=== PATIENT | female | born 1975 | race Caucasian/White ===

== ENCOUNTER 2017-07-29 15:45 | Emergency (ER) | payer BC, OTHER ==
--- NOTE | 2017-07-29 17:05 | ER Document Report ---
ED General - General Chief Complaint: Asthma Exacerbation Stated Complaint: DIFFICULTY BREATHING, COUGH Time Seen by Provider: 07/29/17 16:51 Notes: 42-year-old female here with 2 days of cough chest tightness wheezing shortness of breath congestion runny nose sore throat. She was sick approximately 2 weeks ago with similar symptoms and had improved after azithromycin. She states that she is immune suppressed and has been taking prednisone since the symptoms return. She has tried using her rescue inhaler for her wheezing shortness of breath and chest tightness. TRAVEL OUTSIDE OF THE [place] IN LAST 30 DAYS: No - Related Data Allergies/Adverse Reactions: pregabalin [From Lyrica] Allergy (Verified 07/29/17 15:46) gabapentin [From Neurontin] Adverse Reaction (Verified 07/29/17 15:46) Home Medications: Current Home Medications Acetaminophen [Tylenol] 325 mg PO PRN PRN 07/29/17 [History] Albuterol Sulfate [Proair HFA] 1 - 2 puff IH Q4 PRN 07/29/17 [History] Cetirizine HCl [Zyrtec] 10 mg PO DAILY 07/29/17 [History] Clonazepam [Klonopin] 1 mg PO DAILY 07/29/17 [History] Ibuprofen 200 mg PO PRN PRN 07/29/17 [History] Levothyroxine Sodium 100 mcg PO DAILY 07/29/17 [History] Montelukast Sodium 10 mg PO DAILY 07/29/17 [History] Multivitamin [Multivitamins] 1 each PO DAILY 07/29/17 [History] Ondansetron HCl [Zofran 4 mg Tablet] 1 - 2 tab PO PRN PRN 07/29/17 [History] Prednisone 10 mg PO PRN PRN 07/29/17 [History] Zolmitriptan [Zomig] 2.5 mg NS PRN PRN 07/29/17 [History] Past Medical History - Social History Smoking Status: Never Smoker Chew tobacco use (# tins/day): No Frequency of alcohol use: None Drug Abuse: None Family History: Reviewed & Not Pertinent Patient has suicidal ideation: No Patient has homicidal ideation: No Pulmonary Medical History: Reports: Hx Asthma Renal/ Medical History: Denies: Hx Peritoneal Dialysis Review of Systems - Review of Systems Notes: See history of present illness for pertinent positive review of systems; otherwise all review of systems have been reviewed and are negative Physical Exam - Vital signs Vitals: Temp Pulse Resp BP Pulse Ox 98.4 F 100 12 126/73 H 97 07/29/17 16:08 07/29/17 16:08 07/29/17 16:08 07/29/17 16:08 07/29/17 16:08 - Notes Notes: PHYSICAL EXAMINATION: GENERAL: Well-appearing and in no acute distress. Patient seen coughing several times HEAD: Atraumatic, normocephalic. EYES: Pupils equal round and reactive to light, extraocular movements intact, sclera anicteric, conjunctiva are normal. ENT: nares patent, oropharynx clear without exudates. Moist mucous membranes. NECK: Normal range of motion, supple without lymphadenopathy LUNGS: CTAB and equal. No wheezes rales or rhonchi. HEART: Regular rate and rhythm without murmurs ABDOMEN: Soft, no tenderness. No guarding, no rebound EXTREMITIES: Normal range of motion, no pitting edema. No cyanosis. NEUROLOGICAL: Cranial nerves grossly intact. Normal sensory/motor exams. PSYCH: Normal mood, normal affect. SKIN: Warm, Dry, normal turgor, no rashes or lesions noted Course - Re-evaluation Re-evalutation: 07/29/17 17:06 MEDICAL DECISION MAKING: Concern for upper respiratory infection, most likely viral Will prescribe doxycycline since patient reports she has immunosuppression We will give her refill also of her pro-air and give prescription codeine guaifenesin Instructed follow-up PCP next day or few Patient understands and agrees to the plan of care - Vital Signs Vital signs: Temp Pulse Resp BP Pulse Ox 98.4 F 100 12 126/73 H 97 07/29/17 16:08 07/29/17 16:08 07/29/17 16:08 07/29/17 16:08 07/29/17 16:08 Discharge - Discharge Clinical Impression: Acute URI Condition: Good Disposition: HOME, SELF-CARE Additional Instructions: Finish the prescribed antibiotics. Use the prescribed cough medicine as needed. You were seen in the emergency department at [facility]. If you were given any sedating medications, be sure not to operate heavy machinery (example - driving) and be sure you are not too sedated to walk appropriately. Please followup with your primary physician in the next few days for further management/evaluation. Please return to the emergency department for worsening of symptoms or any symptom that you deem to be concerning or life-threatening. Thank you for allowing us to be part of your care. Prescriptions: Codeine Phosphate/Guaifenesin [Codeine-Guaifen 10-100 mg/5 ml] 120 ml PO Q8HP PRN #7 liquid PRN Reason: Cough Albuterol Sulfate [Proair Hfa Inhalation Aerosol 8.5 gm Mdi] 1 puff IH Q4 PRN # 1 mdi PRN Reason: Doxycycline Hyclate 100 mg PO BID #14 capsule
[2017-07-29 17:12] VITALS: BP 119/77
== END 2017-07-29 17:12 | disposition home or self-care (01) ==
LOC: ER 15:45
DX: J06.9 Acute upper respiratory infection, unspecified (principal); J45.901 Unspecified asthma with (acute) exacerbation; R06.02 Shortness of breath; R05 Cough; R09.81 Nasal congestion; R09.89 Other specified symptoms and signs involving the circulatory and respiratory systems; J02.9 Acute pharyngitis, unspecified; Z79.899 Other long term (current) drug therapy
CPT/HCPCS: 99283

== ENCOUNTER 2018-01-05 11:39 | Emergency (ER) | payer BC, OTHER ==
[2018-01-05] MEDS ORDERED: MORPHINE SULFATE 10 MG/ML INJ IV ONE (12:02)
[2018-01-05] MEDS ORDERED: PANTOPRAZOLE SODIUM 40 MG VIAL IV ONE (12:03)
[2018-01-05] MEDS ORDERED: ONDANSETRON 4 MG TAB.RAPDIS PO ONE (12:21)
[2018-01-05 12:39] LABS: ABSOLUTE BASOPHILS # (AUTO) 0.1 10^3/uL (0.0-0.2); ABSOLUTE EOSINOPHILS # (AUTO) 0.5 10^3/uL (0.0-0.6); ABSOLUTE LYMPHOCYTES (AUTO) 1.8 10^3/uL (0.5-4.7); ABSOLUTE MONOCYTES (AUTO) 0.5 10^3/uL (0.1-1.4); ABSOLUTE NEUT (AUTO) 9.6 10^3/uL (1.7-8.2); BASOPHILS % (AUTO) 0.6 % (0-2); EOSINOPHILS % (AUTO) 3.6 % (0-6); HEMATOCRIT 45.7 % (36.0-47.0); HEMOGLOBIN 15.3 g/dL (12.0-15.5); LYMPHOCYTES % (AUTO) 14.8 % (13-45); MEAN CORPUSCULAR HEMOGLOBIN 27.8 pg (27.0-33.4); MEAN CORPUSCULAR HGB CONC 33.5 g/dL (32.0-36.0); MEAN CORPUSCULAR VOLUME 83 fl (80-97); MONOCYTES % (AUTO) 3.8 % (3-13); PLATELET COUNT 387 10^3/uL (150-450); RED BLOOD COUNT 5.51 10^6/uL (3.72-5.28); RED CELL DISTRIBUTION WIDTH 13.6 % (11.5-14.0); SEGMENTED NEUTROPHILS % (AUTO) 77.2 % (42-78); TOTAL CELLS COUNTED % (AUTO) 100 %; WHITE BLOOD COUNT 12.4 10^3/uL (4.0-10.5)
[2018-01-05 12:48] LABS: APPEARANCE,URINE CLEAR; BILIRUBIN,URINE NEGATIVE (NEGATIVE); COLOR,URINE STRAW; GLUCOSE, URINE NEGATIVE (NEGATIVE); KETONES,URINE NEGATIVE (NEGATIVE); LEUKOCYTE ESTERASE,URINE NEGATIVE (NEGATIVE); NITRITE,URINE NEGATIVE (NEGATIVE); PROTEIN,URINE NEGATIVE (NEGATIVE); URINE SPECIFIC GRAVITY 1.005; UROBILINOGEN,URINE NEGATIVE mg/dL (<2.0)
[2018-01-05 12:52] LABS: ALANINE AMINOTRANSFERASE 31 U/L (9-52); ALBUMIN 5.1 g/dL (3.5-5.0); ALKALINE PHOSPHATASE 81 U/L (38-126); ANION GAP 13 (5-19); ASPARTATE AMINO TRANSFERASE 17 U/L (14-36); BILIRUBIN,DIRECT 0.3 mg/dL (0.0-0.4); BILIRUBIN,TOTAL 0.8 mg/dL (0.2-1.3); BLOOD UREA NITROGEN 10 mg/dL (7-20); CALCIUM 9.9 mg/dL (8.4-10.2); CARBON DIOXIDE 28 mmol/L (22-30); CHLORIDE 102 mmol/L (98-107); GLUCOSE 102 mg/dL (75-110); LIPASE 110.8 U/L (23-300); POTASSIUM 4.3 mmol/L (3.6-5.0); SODIUM 143.4 mmol/L (137-145); TOTAL PROTEIN 8.5 g/dL (6.3-8.2)
--- NOTE | 2018-01-05 13:13 | ER Document Report ---
ED GI/ - General Chief Complaint: Abdominal Pain Stated Complaint: R SIDE ABDOMINAL PAIN Time Seen by Provider: 01/05/18 11:56 Notes: The patient is a 42-year-old female who presents with 1 day of right upper quadrant abdominal pain, epigastric pain and pain to her back. He had this in the past and had a negative gallbladder ultrasound. She was also having some nausea and vomiting earlier today, but this has improved. She denies hematemesis, fevers, flank pain, hematuria, rash or headache. TRAVEL OUTSIDE OF THE [place] IN LAST 30 DAYS: No - Related Data Allergies/Adverse Reactions: pregabalin [From Lyrica] Allergy (Verified 01/05/18 11:55) gabapentin [From Neurontin] Adverse Reaction (Verified 01/05/18 11:55) Past Medical History - General Information source: Patient - Social History Smoking Status: Never Smoker Frequency of alcohol use: None Drug Abuse: None Family History: Reviewed & Not Pertinent Patient has suicidal ideation: No Patient has homicidal ideation: No Pulmonary Medical History: Reports: Hx Asthma Renal/ Medical History: Denies: Hx Peritoneal Dialysis Review of Systems - Review of Systems Notes: REVIEW OF SYSTEMS: CONSTITUTIONAL: -fevers, -chills EENT: -eye pain, -difficulty swallowing, -nasal congestion CARDIOVASCULAR: -chest pain, -syncope. RESPIRATORY: -cough, -SOB GASTROINTESTINAL: +RUQ abdominal pain, +nausea, +vomiting, -diarrhea GENITOURINARY: -dysuria, -hematuria MUSCULOSKELETAL: -back pain, -neck pain SKIN: -rash or skin lesions. HEMATOLOGIC: -easy bruising or bleeding. LYMPHATIC: -swollen, enlarged glands. NEUROLOGICAL: -altered mental status or loss of consciousness, -headache, - neurologic symptoms PSYCHIATRIC: -anxiety, -depression. ALL OTHER SYSTEMS REVIEWED AND NEGATIVE. Physical Exam - Vital signs Vitals: Temp Pulse Resp BP Pulse Ox 98.3 F 87 18 138/81 H 98 01/05/18 11:45 01/05/18 11:45 01/05/18 11:45 01/05/18 11:45 01/05/18 11:45 - Notes Notes: PHYSICAL EXAMINATION: GENERAL: Tearful, mild distress. HEAD: Atraumatic, normocephalic. EYES: Pupils equal round and reactive to light, extraocular movements intact, sclera anicteric, conjunctiva are normal. ENT: nares patent, oropharynx clear without exudates. Moist mucous membranes. NECK: Normal range of motion, supple without lymphadenopathy LUNGS: Breath sounds clear to auscultation bilaterally and equal. No wheezes rales or rhonchi. HEART: Regular rate and rhythm without murmurs ABDOMEN: Soft, mild RUQ tenderness, normoactive bowel sounds. No guarding, no rebound. No masses appreciated. EXTREMITIES: Normal range of motion, no pitting or edema. No cyanosis. NEUROLOGICAL: Cranial nerves grossly intact. Normal speech, normal gait. Normal sensory and motor exams. PSYCH: Normal mood, normal affect. SKIN: Warm, Dry, normal turgor, no rashes or lesions noted. Course - Re-evaluation Re-evalutation: Patient with right upper quadrant abdominal pain radiating to the back and worsening reflux symptoms. Ultrasound does not show any evidence of cholecystitis and her blood work and urine are unremarkable, other than a slight leukocytosis which may be related to her recent vomiting. She has had this in the past and it resolved spontaneously. After medications, she feels much better. Instructed her to begin Prilosec twice a day for possible gastritis/duodenitis and follow-up with her primary care physician and GI doctor for further evaluation and treatment. Given strict return precautions and she understands. - Vital Signs Vital signs: Temp Pulse Resp BP Pulse Ox 98.3 F 74 16 128/66 H 98 01/05/18 11:45 01/05/18 14:14 01/05/18 14:14 01/05/18 14:14 01/05/18 14:14 - Laboratory Result Diagrams: 01/05/18 12:18 01/05/18 12:18 Laboratory results interpreted by me: 01/05/18 01/05/18 12:18 12:18 WBC 12.4 H RBC 5.51 H Absolute Neutrophils 9.6 H Total Protein 8.5 H Albumin 5.1 H - Diagnostic Test Radiology reviewed: Image reviewed, Reports reviewed Radiology results interpreted by : ALDO US: NAD Discharge - Discharge Clinical Impression: Abdominal pain Qualifiers: Abdominal location: right upper quadrant Qualified Code(s): R10.11 - Right upper quadrant pain Condition: Stable Disposition: HOME, SELF-CARE Additional Instructions: ABDOMINAL PAIN: There are many causes of abdominal pain. Pain can mean a serious problem requiring surgery (such as appendicitis). It can also be an innocent problem that goes away on its own (such as a viral infection). Often, time must pass to determine the cause of pain. The physician does not feel that hospitalization is necessary, at present. Things may change within the next 24 hours. Call the doctor or come back for re- examination if any problems occur, such as: (1) Pain that becomes more severe, steady, or becomes concentrated in one specific area. Also, pain that is more severe with movement or coughing. (2) Vomiting that persists or becomes more frequent. (3) Blood in the vomitus, urine, or bowel movements. Blood in the stool may have a tarry or black appearance. (4) Shaking chills or fever greater than 100 degrees F. (5) The abdomen becomes more distended or swollen. (6) Bowel movements cease. (7) Failure to improve as expected. NORMAL EXAM AND WORKUP: At this time, your examination and workup show no significant abnormality. No significant abnormal physical findings are noted. All laboratory, EKG, and imaging (x-ray, CT scans, ultrasound) studies that were ordered show no significant abnormality. Although your examination and all studies that were ordered showed no significant abnormal finding, there are no examinations and no studies that are 100% accurate. There is always the possibility that some abnormality could exist and not be detected with physical examination or within the limits and capabilities of laboratory and other studies. You should return or follow up as you were instructed on your visit today for further evaluation if your symptoms do not resolve. PAIN MEDICATION INJECTION: You have received an injection of a pain medication. You should experience significant pain relief within 45 minutes. This drug is a narcotic - - it will impair your judgement, slow your reaction time and make you sleepy ( as well as relieve your pain). Narcotics also can cause nausea. You should not drive, work with machinery, or perform any task requiring mental alertness until all effects of the medication are gone -- six to eight hours. Do not take any alcohol, or sedatives, and do not take any other medication without checking with your physician. ANTINAUSEA MEDICATION: You have been given a medication to suppress nausea and vomiting. This type of medication can be given as a shot, pill, or suppository. It will usually last for many hours. Pills and shots usually last six to eight hours, suppositories last about 12 hours. For the typical illness, only one or two doses of the medication may be necessary. Mild lightheadedness may occur. This type of medicine can cause drowsiness. Do not drive or operate dangerous machinery while under its influence. Do not mix with alcohol. See your doctor at once if you have muscle spasms or tightness, or uncontrollable motions (particularly of the neck, mouth, or jaw). Persistent vomiting or severe lightheadedness should also be evaluated by the physician. FOLLOW-UP CARE: If you have been referred to a physician for follow-up care, call the physician s office for an appointment as you were instructed or within the next two days. If you experience worsening or a significant change in your symptoms, notify the physician immediately or return to the Emergency Department at any time for re-evaluation. Prescriptions: Omeprazole Magnesium [Prilosec Otc] 20 mg PO Q12H #14 tablet.dr Forms: Elevated Blood Pressure Referrals: GARCÍA ROBERSON DO [NO LOCAL MD] - Follow up as needed DANNA NAJERA MD [ACTIVE STAFF] - Follow up as needed
--- NOTE | 2018-01-05 13:40 | RADIOLOGY REPORT (SQ) ---
EXAM DESCRIPTION: U/S ABDOMEN LIMITED W/O DOP COMPLETED DATE/TIME: 01/05/2018 1:23 pm REASON FOR STUDY: RUQ tenderness COMPARISON: Abdominal ultrasound 02/20/2013 TECHNIQUE: Dynamic and static grayscale images acquired of the abdomen and recorded on PACS. Additio nal selected color Doppler and spectral images recorded. LIMITATIONS: Midline bowel gas FINDINGS: PANCREAS: Not visualized LIVER: No masses. Echotexture normal. LIVER VASCULATURE: Normal directional flow of the main portal vein and hepatic veins. GALLBLADDER: No stones. Minimal sludge in the dependent portion of the gallbladder. Normal wall thi ckness. No pericholecystic fluid. ULTRASOUND-DETECTED JIMENEZ'S SIGN: Negative. INTRAHEPATIC DUCTS AND COMMON DUCT: CBD and intrahepatic ducts normal caliber. No filling defects. D istal common duct not well seen due to duodenum gas. INFERIOR VENA CAVA: Normal flow. AORTA: No aneurysm. RIGHT KIDNEY: Normal size. Normal echogenicity. No solid or suspicious masses. No hydronephrosis. No calcifications. PERITONEAL AND RIGHT PLEURAL SPACE: No ascites or effusions. OTHER: No other significant findings. IMPRESSION: No gallstones, gallbladder wall thickening or pericholecystic fluid. Negative sonograph ic Jimenez's sign TECHNICAL DOCUMENTATION: JOB ID: [id number] [employer]- All Rights Reserved Reading location - IP/workstation name: [email or web address]
[2018-01-05 14:16] VITALS: BP 128/66
== END 2018-01-05 14:28 | disposition home or self-care (01) ==
LOC: ER 11:39
DX: R10.11 Right upper quadrant pain (principal); R10.13 Epigastric pain
CPT/HCPCS: 99284; 96374; 96375; 36415; 83690; 85025; 81025; 80053; 81001; 76705; S0119; J2270; S0164

== ENCOUNTER → 2019-11-08 | Outpatient (CLI) | payer OTHER ==
--- NOTE | 2019-11-08 13:56 | RADIOLOGY REPORT (SQ) ---
EXAM DESCRIPTION: MRI HEAD COMBO IMAGES COMPLETED DATE/TIME: 11/08/2019 1:42 pm REASON FOR STUDY: MS (G35) G35 MULTIPLE SCLEROSIS COMPARISON: 2008 TECHNIQUE: Multiplanar imaging includes noncontrasted T1, T2, FLAIR, diffusion with ADC map and post gadolinium contrast T1 sequences. Images stored on PACS. CONTRAST TYPE AND DOSE: 20 mL Dotarem. RENAL FUNCTION: Not indicated. ACR Type II contrast agent associated with few, if any, unconfounded cases of NSF LIMITATIONS: None. FINDINGS: ANATOMY: No anomalies. Normal vascular flow voids. Pituitary fossa normal. CSF SPACES: Normal in size and contour. No hemorrhage. CEREBRUM: Sulci and gyri normal in size and contour. Normal white matter signal on FLAIR imaging. No evidence of hemorrhage, mass, or extraaxial fluid collection. No abnormal enhancement post contrast. POSTERIOR FOSSA: No signal alteration. No hemorrhage. No edema, masses, or mass effect. Internal renaldo tory canals, cerebellopontine angles, mastoids normal. No enhancing lesions. No abnormal enhancement post contrast. DIFFUSION IMAGING: Negative for acute or subacute infarction. ORBITS: No masses. Globes normal. PARANASAL SINUSES: Fluid left maxillary sinus. OTHER: No other significant finding. IMPRESSION: Normal brain. EVIDENCE OF ACUTE STROKE: NO. TECHNICAL DOCUMENTATION: JOB ID: [id number] 2010 [employer]- All Rights Reserved Reading location - IP/workstation name: [email or web address]
== END ==
LOC: RAD 12:19
PROVIDERS: ATTEND Internal Medicine
DX: G35 Multiple sclerosis (principal)
CPT/HCPCS: 82565; 70553; A9576

== ENCOUNTER 2019-12-26 12:59 | Emergency (ER) | payer OTHER ==
--- NOTE | 2019-12-26 14:01 | ER Document Report ---
ED Medical Screen (RME) - General Chief Complaint: Chest Pain Stated Complaint: CHEST PAIN Time Seen by Provider: 12/26/19 14:00 Primary Care Provider: ELEAZAR ZAYAS MD [Primary Care Provider] - Follow up as needed Mode of Arrival: Ambulatory Information source: Patient Notes: 44-year-old female presents to ED for complaint of chest pain in the center of her chest is pressure and feeling she cannot breathe lightheaded. She states she has a past history of GERD and reflux but sometimes the pain is so bad in her chest that she thinks she is having a heart attack. She is alert oriented respirations regular and unlabored speaking in full sentences. She does have a history of reflux asthma Joey's lupus and high blood pressure. She states she does not smoke drink or use any drugs. I have greeted and performed a rapid initial assessment of this patient. A comprehensive ED assessment and evaluation of the patient, analysis of test results and completion of medical decision making process will be conducted by an additional ED providers. TRAVEL OUTSIDE OF THE [place] IN LAST 30 DAYS: No - Related Data Allergies/Adverse Reactions: pregabalin [From Lyrica] Allergy (Verified 01/05/18 11:55) gabapentin [From Neurontin] Adverse Reaction (Verified 01/05/18 11:55) Past Medical History Pulmonary Medical History: Reports: Hx Asthma Renal/ Medical History: Denies: Hx Peritoneal Dialysis Physical Exam - Vital signs Vitals: Temp Pulse Resp BP Pulse Ox 98.3 F 71 16 135/81 H 99 12/26/19 13:13 12/26/19 13:13 12/26/19 13:13 12/26/19 13:13 12/26/19 13:13 Course - Vital Signs Vital signs: Temp Pulse Resp BP Pulse Ox 98.3 F 71 16 135/81 H 99 12/26/19 13:13 12/26/19 13:13 12/26/19 13:13 12/26/19 13:13 12/26/19 13:13 Doctor's Discharge - Discharge Referrals: ELEAZAR ZAYAS MD [Primary Care Provider] - Follow up as needed
[2019-12-26] MEDS ORDERED: ASPIRIN 81 MG TABLET, CHEWABLE PO ONE (14:02)
[2019-12-26 14:31] LABS: ABSOLUTE BASOPHILS # (AUTO) 0.1 10^3/uL (0.0-0.2); ABSOLUTE EOSINOPHILS # (AUTO) 0.3 10^3/uL (0.0-0.6); ABSOLUTE LYMPHOCYTES (AUTO) 1.3 10^3/uL (0.5-4.7); ABSOLUTE MONOCYTES (AUTO) 0.6 10^3/uL (0.1-1.4); ABSOLUTE NEUT (AUTO) 11.6 10^3/uL (1.7-8.2); BASOPHILS % (AUTO) 0.5 % (0-2); EOSINOPHILS % (AUTO) 2.2 % (0-6); HEMATOCRIT 40.3 % (36.0-47.0); HEMOGLOBIN 13.6 g/dL (12.0-15.5); LYMPHOCYTES % (AUTO) 9.4 % (13-45); MEAN CORPUSCULAR HEMOGLOBIN 26.9 pg (27.0-33.4); MEAN CORPUSCULAR HGB CONC 33.8 g/dL (32.0-36.0); MEAN CORPUSCULAR VOLUME 80 fl (80-97); MONOCYTES % (AUTO) 4.1 % (3-13); PLATELET COUNT 357 10^3/uL (150-450); RED BLOOD COUNT 5.07 10^6/uL (3.72-5.28); RED CELL DISTRIBUTION WIDTH 17.1 % (11.5-14.0); SEGMENTED NEUTROPHILS % (AUTO) 83.8 % (42-78); TOTAL CELLS COUNTED % (AUTO) 100 %; WHITE BLOOD COUNT 13.8 10^3/uL (4.0-10.5)
--- NOTE | 2019-12-26 14:32 | RADIOLOGY REPORT (SQ) ---
EXAM DESCRIPTION: CHEST 2 VIEWS IMAGES COMPLETED DATE/TIME: 12/26/2019 2:22 pm REASON FOR STUDY: chest pain COMPARISON: AP view of the chest from 03/10/2009. EXAM PARAMETERS: NUMBER OF VIEWS: Two views. TECHNIQUE: PA and lateral views of the chest were obtained. RADIATION DOSE: NA LIMITATIONS: None. FINDINGS: LUNGS AND PLEURA: No consolidation, pleural effusion or pneumothorax. MEDIASTINUM AND HILAR STRUCTURES: No mediastinal or hilar contour abnormality. HEART AND VASCULAR STRUCTURES: The cardiac silhouette and pulmonary vasculature are within normal [place] its. BONES: No acute findings. HARDWARE: None in the chest. OTHER: No other finding. IMPRESSION: No acute cardiopulmonary process. TECHNICAL DOCUMENTATION: JOB ID: [id number] 2010 [employer]- All Rights Reserved Reading location - IP/workstation name: [email or web address]
[2019-12-26 14:49] LABS: ALKALINE PHOSPHATASE 68 U/L (38-126); ANION GAP 9 (5-19); ASPARTATE AMINO TRANSFERASE 22 U/L (14-36); BILIRUBIN,TOTAL 0.8 mg/dL (0.2-1.3); BLOOD UREA NITROGEN 13 mg/dL (7-20); CALCIUM 9.9 mg/dL (8.4-10.2); CARBON DIOXIDE 30 mmol/L (22-30); CHLORIDE 101 mmol/L (98-107); GLUCOSE 104 mg/dL (75-110); POTASSIUM 4.1 mmol/L (3.6-5.0); TOTAL PROTEIN 8.2 g/dL (6.3-8.2)
[2019-12-26 15:04] LABS: FREE T3 3.46 pg/mL (2.77-5.27); FREE T4 (FREE THYROXINE) 1.34 ng/dL (0.78-2.19)
[2019-12-26 15:18] LABS: THYROID STIMULATING HORMONE 2.16 uIU/mL (0.47-4.68)
[2019-12-26 15:23] LABS: APPEARANCE,URINE CLEAR; BILIRUBIN,URINE NEGATIVE (NEGATIVE); COLOR,URINE STRAW; GLUCOSE, URINE NEGATIVE (NEGATIVE); KETONES,URINE NEGATIVE (NEGATIVE); LEUKOCYTE ESTERASE,URINE NEGATIVE (NEGATIVE); NITRITE,URINE NEGATIVE (NEGATIVE); PROTEIN,URINE NEGATIVE (NEGATIVE); URINE SPECIFIC GRAVITY 1.004; UROBILINOGEN,URINE NEGATIVE mg/dL (<2.0)
--- NOTE | 2019-12-26 16:49 | ER Document Report ---
ED General - General Chief Complaint: Chest Pain Stated Complaint: CHEST PAIN Time Seen by Provider: 12/26/19 14:00 Primary Care Provider: ELEAZAR ZAYAS MD [Primary Care Provider] - Follow up as needed Mode of Arrival: Ambulatory TRAVEL OUTSIDE OF THE [place] IN LAST 30 DAYS: No - HPI Similar symptoms previously: Yes - patient has had chronic GI issues for some time bu Recently seen / treated by doctor: No Notes: 44 year old female with a history of Lupus, HTN, GERD, Asthma, Thyroid Problems here in the ER for epigastric and RUQ abdominal pain since yesterday. The patient says she has chronic GI issues and she has had an endoscopy in the past and has been told she has "hernia" and GERD. The patient says she had some much pain/pressure in her upper abdomen today that the pain seemed to radiate into her chest and she felt like she was having a heart attack. The patient denies vomiting, sweating, shortness of breath but she has had some nausea. The patient says she was seen here in the ER about a year ago and she had an ultrasound of her gallbladder then showing some sludge but no stones. - Related Data Allergies/Adverse Reactions: vilazodone [From Viibryd] Allergy (Verified 12/26/19 14:01) Past Medical History - General Information source: Patient - Social History Smoking Status: Never Smoker Frequency of alcohol use: None Drug Abuse: None Lives with: Family Family History: Reviewed & Not Pertinent Patient has homicidal ideation: No Pulmonary Medical History: Reports: Hx Asthma Renal/ Medical History: Denies: Hx Peritoneal Dialysis Review of Systems - Review of Systems Constitutional: No symptoms reported EENT: No symptoms reported Cardiovascular: Chest pain Respiratory: No symptoms reported Gastrointestinal: Abdominal pain, Nausea, Vomiting Genitourinary: No symptoms reported Female Genitourinary: No symptoms reported Musculoskeletal: No symptoms reported Skin: No symptoms reported Hematologic/Lymphatic: No symptoms reported Neurological/Psychological: No symptoms reported -: Yes All other systems reviewed and negative Physical Exam - Vital signs Vitals: Temp 98.3 F 12/26/19 12:59 - Notes Notes: GENERAL: Well-appearing, well-nourished and in no acute distress. HEAD: Atraumatic, normocephalic. EYES: Pupils equal round and reactive to light, extraocular movements intact, sclera anicteric, conjunctiva are normal. ENT: External ears normal, nares patent, oropharynx clear without exudates. Moist mucous membranes. NECK: Normal range of motion, supple without lymphadenopathy or JVD. LUNGS: Breath sounds clear to auscultation bilaterally and equal. No wheezes rales or rhonchi. HEART: Regular rate and rhythm without murmurs, rubs or gallops. ABDOMEN: Soft, mild tenderness in RUQ and epigastric area, normoactive bowel sounds. No guarding, no rebound. No masses appreciated. EXTREMITIES: Normal range of motion, no pitting or edema. No clubbing or cyanosis. NEUROLOGICAL: Cranial nerves II through XII grossly intact. Normal speech, normal gait. PSYCH: Normal mood, normal affect. SKIN: Warm, Dry, normal turgor, no rashes or lesions noted. Course - Re-evaluation Re-evalutation: 12/26/19 20:52 The patient is here for epigastric and RUQ abdominal pain. She has had pains like this before but they seem to be getting worse. The patient says the pains radiated to her chest today so she came to the ER to ensure she was not having a heart attack. Patient is low risk for ACS/CAD. Patient's blood work, abdominal US, UA all unremarkable. Patient told to follow up with her PCP and to consider follow up with a GI Doctor. - Vital Signs Vital signs: Temp Pulse Resp BP Pulse Ox 98 F 66 16 127/68 H 99 12/26/19 18:49 12/26/19 18:49 12/26/19 18:49 12/26/19 18:49 12/26/19 18:49 - Laboratory Result Diagrams: 12/26/19 14:13 12/26/19 14:13 Laboratory results interpreted by me: 12/26/19 12/26/19 14:00 14:13 WBC 13.8 H MCH 26.9 L RDW 17.1 H Lymph % (Auto) 9.4 L Absolute Neuts (auto) 11.6 H Seg Neutrophils % 83.8 H Urine Blood MODERATE H Urine Ascorbic Acid 20 H - Diagnostic Test Radiology reviewed: Image reviewed, Reports reviewed - EKG Interpretation by Ct EKG shows normal: Sinus rhythm, [place], Intervals, QRS Complexes, ST-T Waves Rate: Normal Rhythm: NSR Discharge - Discharge Clinical Impression: Abdominal pain Qualifiers: Abdominal location: upper abdomen, unspecified Qualified Code(s): R10.10 - Upper abdominal pain, unspecified Chest pain Qualifiers: Chest pain type: unspecified Qualified Code(s): R07.9 - Chest pain, unspecified Disposition: HOME, SELF-CARE Instructions: Abdominal Pain ([facility]), Chest Pain of Unclear Cause ([facility]) Additional Instructions: Follow up with your primary care doctor and also with a GI Doctor and tell them about your ER visit today. You had blood work done in the ER showing normal function of your liver, gallbladder, pancreas, kidneys. You had an Ultrasound of your upper abdomen showing no acute process and specifically no gallstones. You had an EKG and blood work specific to your heart which were within normal limits. Referrals: ELEAZAR ZAYAS MD [Primary Care Provider] - Follow up as needed
--- NOTE | 2019-12-26 18:16 | RADIOLOGY REPORT (SQ) ---
EXAM DESCRIPTION: U/S ABDOMEN COMPLETE W/O DOP IMAGES COMPLETED DATE/TIME: 12/26/2019 5:19 pm REASON FOR STUDY: eval for cause of abdominal pain COMPARISON: 01/05/2018 TECHNIQUE: Dynamic and static grayscale images acquired of the abdomen and recorded on PACS. Additio samia selected color Doppler and spectral images recorded. Note: Study does not meet criteria for complete doppler/duplex scan LIMITATIONS: None. FINDINGS: PANCREAS: No masses. Limited visibility. LIVER: Normal size. Increased echogenicity. LIVER VASCULATURE: Normal directional flow of the main portal vein and hepatic veins. GALLBLADDER: No stones. Normal wall thickness. No pericholecystic fluid. ULTRASOUND-DETECTED GORDON'S SIGN: Negative. INTRAHEPATIC DUCTS AND COMMON DUCT: Common bile duct is prominent at 7.2 mm. There is no intrahepati c ductal dilatation. INFERIOR VENA CAVA: Normal flow. AORTA: No aneurysm. RIGHT KIDNEY: Normal size, 10.2 cm. Normal echogenicity. No solid or suspicious masses. No hyd ronephrosis. No calcifications. LEFT KIDNEY: Normal size, 12.4 cm. Normal echogenicity. No solid or suspicious masses. No hydr onephrosis. No calcifications. SPLEEN: Normal size. No solid masses. PERITONEAL AND PLEURAL SPACES: No ascites or effusions. OTHER: No other significant finding. IMPRESSION: The common bile duct is borderline at 7 mm. There is no intrahepatic ductal dilatation. There is hepatic steatosis. No other significant finding. TECHNICAL DOCUMENTATION: JOB ID: [id number] 2010 [employer]- All Rights Reserved Reading location - IP/workstation name: [email or web address]
[2019-12-26 18:50] VITALS: BP 127/68
--- NOTE | 2019-12-27 08:06 | EKG REPORT ---
SEVERITY:- NORMAL ECG - SINUS RHYTHM : Confirmed by: Alma Mcclellan MD 27-Dec-2019 08:05:50
== END 2019-12-26 19:07 | disposition home or self-care (01) ==
LOC: ER 12:59
DX: R10.10 Upper abdominal pain, unspecified (principal); R07.9 Chest pain, unspecified; R10.11 Right upper quadrant pain; R10.13 Epigastric pain; R11.0 Nausea; I10 Essential (primary) hypertension; K21.9 Gastro-esophageal reflux disease without esophagitis; J45.909 Unspecified asthma, uncomplicated; Z88.8 Allergy status to other drugs, medicaments and biological substances
CPT/HCPCS: 36415; 71046; 76700; 80053; 81001; 83690; 83735; 84439; 84443; 84481; 84484; 85025; 93005; 93010; 99285

== ENCOUNTER 2020-01-28 13:30 | Emergency (ER) | payer OTHER ==
[2020-01-28] MEDS ORDERED: METOCLOPRAMIDE HCL ORAL SOLN 10 MG/10 ML UDCUP PO ONE (14:01)
[2020-01-28] MEDS ORDERED: MAG HYDROX/AL HYDROX/SIMETH SUSP 30 ML UDCUP PO ONE (14:01)
[2020-01-28] MEDS ORDERED: LIDOCAINE 2% VISCOUS SOLN 15 ML UDCUP PO ONE (14:01)
--- NOTE | 2020-01-28 14:03 | ER Document Report ---
ED Medical Screen (RME) - General Stated Complaint: EPIGASTRIC PAIN Time Seen by Provider: 01/28/20 13:56 Primary Care Provider: ELEAZAR ZAYAS MD [Primary Care Provider] - Follow up as needed Notes: HPI: 44-year-old female presenting to the emergency department complaining of a spasming sensation in the back of the throat leading to some shortness of breath and chest discomfort. Reports epigastric right upper quadrant pain. This is been an ongoing issue with the abdominal pain for several months. States that she has had endoscopy in the past with a head correction officer in [place] that she is been unable to get into and they told her she had a hernia and reflux. She states she is on Protonix currently. Was on Zantac previously which she felt helped but when it got recalled she had to stop this medication. Did not call her primary care provider about evaluation prior to coming to the emergency department today. PHYSICAL EXAMINATION: There is mild tenderness to the epigastric right upper quadrant region on palpation. Patient is not dyspneic with speaking. Lung sounds are clear to auscultation with regular rate and rhythm. On review of the records she did have an ultrasound December 26, 2019 which did not definitively show stones but did show mild borderline dilatation of the common bile duct. I have greeted and performed a rapid initial assessment of this patient. A comprehensive ED assessment and evaluation of the patient, analysis of test results and completion of medical decision making process will be conducted by an additional ED providers. TRAVEL OUTSIDE OF THE [place] IN LAST 30 DAYS: No - Related Data Allergies/Adverse Reactions: vilazodone [From Viibryd] Allergy (Verified 12/26/19 14:01) Past Medical History Pulmonary Medical History: Reports: Hx Asthma Renal/ Medical History: Denies: Hx Peritoneal Dialysis Doctor's Discharge - Discharge Referrals: ELEAZAR ZAYAS MD [Primary Care Provider] - Follow up as needed
[2020-01-28 14:52] LABS: ABSOLUTE BASOPHILS # (AUTO) 0.1 10^3/uL (0.0-0.2); ABSOLUTE EOSINOPHILS # (AUTO) 0.4 10^3/uL (0.0-0.6); ABSOLUTE LYMPHOCYTES (AUTO) 1.5 10^3/uL (0.5-4.7); ABSOLUTE MONOCYTES (AUTO) 0.5 10^3/uL (0.1-1.4); EOSINOPHILS % (AUTO) 3.6 % (0-6); HEMATOCRIT 41.6 % (36.0-47.0); HEMOGLOBIN 13.9 g/dL (12.0-15.5); MEAN CORPUSCULAR HEMOGLOBIN 26.8 pg (27.0-33.4); MEAN CORPUSCULAR HGB CONC 33.4 g/dL (32.0-36.0); MEAN CORPUSCULAR VOLUME 80 fl (80-97); MONOCYTES % (AUTO) 5.1 % (3-13); PLATELET COUNT 374 10^3/uL (150-450); RED BLOOD COUNT 5.18 10^6/uL (3.72-5.28); RED CELL DISTRIBUTION WIDTH 15.4 % (11.5-14.0); SEGMENTED NEUTROPHILS % (AUTO) 76.3 % (42-78); TOTAL CELLS COUNTED % (AUTO) 100 %; WHITE BLOOD COUNT 10.5 10^3/uL (4.0-10.5)
[2020-01-28 14:53] LABS: APPEARANCE,URINE CLEAR; BILIRUBIN,URINE NEGATIVE (NEGATIVE); COLOR,URINE COLORLESS; GLUCOSE, URINE NEGATIVE (NEGATIVE); KETONES,URINE NEGATIVE (NEGATIVE); LEUKOCYTE ESTERASE,URINE NEGATIVE (NEGATIVE); NITRITE,URINE NEGATIVE (NEGATIVE); PROTEIN,URINE NEGATIVE (NEGATIVE); URINE SPECIFIC GRAVITY 1.002; UROBILINOGEN,URINE NEGATIVE mg/dL (<2.0)
[2020-01-28 15:07] LABS: ALKALINE PHOSPHATASE 75 U/L (38-126); ANION GAP 9 (5-19); ASPARTATE AMINO TRANSFERASE 22 U/L (14-36); BILIRUBIN,TOTAL 0.4 mg/dL (0.2-1.3); BLOOD UREA NITROGEN 10 mg/dL (7-20); CALCIUM 9.6 mg/dL (8.4-10.2); CARBON DIOXIDE 29 mmol/L (22-30); CHLORIDE 102 mmol/L (98-107); GLUCOSE 106 mg/dL (75-110); POTASSIUM 4.1 mmol/L (3.6-5.0); TOTAL PROTEIN 8.1 g/dL (6.3-8.2)
[2020-01-28 16:24] VITALS: BP 125/80
--- NOTE | 2020-01-28 16:32 | ER Document Report ---
HPI - HPI Time Seen by Provider: 01/28/20 13:56 Pain Level: 4 Notes: CHIEF COMPLAINT:throat spasm, chest pain HPI:44-year-old female presenting to the emergency department complaining of a spasming sensation in the back of the throat leading to some shortness of breath and chest discomfort. Reports epigastric right upper quadrant pain. This is been an ongoing issue with the abdominal pain for several months. States that she has had endoscopy in the past with a hurl shaker in [place] that she is been unable to get into and they told her she had a hernia and reflux. She states she is on Protonix currently. Was on Zantac previously which she felt helped but when it got recalled she had to stop this medication. Did not call her primary care provider about evaluation prior to coming to the emergency department today. ROS: See HPI - all other systems were reviewed and are otherwise negative Constitutional: no fever Eyes: no drainage, no blurred vision ENT: no runny nose, no sore throat Cardiovascular: no chest pain Resp: no SOB, no cough GI: no vomiting, no diarrhea, no abdominal pain : no dysuria Integumentary: no rash Allergy: no hives Musculoskeletal: no extremity pain or swelling Neurological: no numbness/tingling, no weakness MEDICATIONS: I agree with the patient medications as charted by the RN. ALLERGIES: I agree with the allergies as charted by the RN. PAST MEDICAL HISTORY/PAST SURGICAL HISTORY: Reviewed and agree as charted by RN. SOCIAL HISTORY: Reviewed and agree as charted by RN. FAMILY HISTORY: No significant familial comorbid conditions directly related to patient complaint EXAM: Reviewed vital signs as charted by RN. CONSTITUTIONAL: Alert and oriented and responds appropriately to questions. Well-appearing; well-nourished HEAD: Normocephalic; atraumatic EYES: PERRL; Conjunctivae clear, sclerae non-icteric ENT: normal nose; no rhinorrhea; moist mucous membranes; pharynx without lesions noted, no uvula edema or deviation, no tonsillar hypertrophy, phonation normal NECK: Supple without meningismus; non-tender; no cervical lymphadenopathy, no masses CARD: RRR; no murmurs, no clicks, no rubs, no gallops; symmetric distal pulses RESP: Normal chest excursion without splinting or tachypnea; breath sounds clear and equal bilaterally; no wheezes, no rhonchi, no rales, pulse oximetry 100% on room air not hypoxic. Patient is not dyspneic with speaking. ABD/GI: Normal bowel sounds; non-distended; soft, There is mild tenderness to the epigastric right upper quadrant region on palpation. BACK: The back appears normal and is non-tender to palpation, there is no CVA tenderness EXT: Normal ROM in all joints; non-tender to palpation; no cyanosis, no effusions, no edema SKIN: Normal color for age and race; warm; dry; good turgor; no acute lesions noted NEURO: Moves all extremities equally; Motor and sensory function intact PSYCH: The patient's mood and manner are appropriate. Grooming and personal hygiene are appropriate. MDM:On review of the records she did have an ultrasound December 26, 2019 which did not definitively show stones but did show mild borderline dilatation of the common bile duct. - REPRODUCTIVE Reproductive: DENIES: : Past Medical History - Social History Smoking Status: Never Smoker Frequency of alcohol use: None Drug Abuse: None Family History: Reviewed & Not Pertinent Pulmonary Medical History: Reports: Hx Asthma Renal/ Medical History: Denies: Hx Peritoneal Dialysis Vertical Provider Document - INFECTION CONTROL TRAVEL OUTSIDE OF THE [place] IN LAST 30 DAYS: No Course - Re-evaluation Re-evalutation: 01/28/20 16:34 Patient's lab work does not show any acute abnormalities. She is likely having esophageal spasm. I spoke with the patient at length about this. She states that she had been on Reglan for a long time and this did seem to help with her symptoms but stopped using the Reglan when she was diagnosed with lupus because they were not sure if the tics that were associated with the lupus came from the Reglan although she states even though she stopped the Reglan she still has the tics. She has Reglan at home will take 5 mg twice daily follow-up with her hurl shaker. Her cardiac labs are normal - Vital Signs Vital signs: Temp Pulse Resp BP Pulse Ox 98.9 F 69 18 125/80 100 01/28/20 16:23 01/28/20 16:23 01/28/20 16:23 01/28/20 16:23 01/28/20 16:23 - Laboratory Result Diagrams: 01/28/20 14:29 01/28/20 14:29 Laboratory results interpreted by me: 01/28/20 14:29 MCH 26.8 L RDW 15.4 H Discharge - Discharge Clinical Impression: Esophageal spasm Condition: Stable Disposition: HOME, SELF-CARE Additional Instructions: Follow-up with your hurl shaker for further evaluation and treatment call for appointment. Use the Reglan 5 mg twice daily to help with the spasm. Your lab work today did not show acute emergent abnormalities Referrals: ELEAZAR ZAYAS MD [Primary Care Provider] - Follow up as needed
--- NOTE | 2020-01-29 14:34 | EKG REPORT ---
SEVERITY:- NORMAL ECG - SINUS RHYTHM : Confirmed by: Deni Sharp MD 29-Jan-2020 14:33:30
== END 2020-01-28 16:38 | disposition home or self-care (01) ==
LOC: ER 13:30
DX: J39.2 Other diseases of pharynx (principal); R07.9 Chest pain, unspecified; R06.02 Shortness of breath
CPT/HCPCS: 93005; 99285; 36415; 83690; 85025; 80053; 81001; 84484; 93010; J3490